=== PATIENT | male | born 1960 | race Caucasian/White ===

== ENCOUNTER → 2020-01-26 | Emergency (ER) | payer OTHER ==
[~2020-01-26] VITALS: Ht 170.2 cm; Wt 68.0 kg
== END | disposition home or self-care (01) ==
LOC: ER 17:12
DX: N39.0 Urinary tract infection, site not specified (principal); Z03.818 Encounter for observation for suspected exposure to other biological agents ruled out

== ENCOUNTER 2020-09-01 09:30 | Emergency (ER) | payer OTHER ==
[~2020-09-01] VITALS: Ht 170.2 cm; Wt 68.9 kg
[2020-09-01] MEDS ORDERED: LIPITOR20 MG PO (09:51)
[2020-09-01] MEDS ORDERED: TAMS0.4C PO (09:52)
[2020-09-01] MEDS ORDERED: ZESTRIL10 M1 PO (09:52)
[2020-09-01] MEDS ORDERED: HORIZANT300 MG PO (09:52)
[2020-09-01] MEDS ORDERED: LANTUS SOL100 UNIT/1 SQ (09:53)
[2020-09-01] MEDS ORDERED: HUMALOG100 UNIT/2 (09:54)
[2020-09-01] MEDS ORDERED: CELEBREX100 MG PO (15:06)
== END 2020-09-01 17:12 ==
LOC: ER 09:30
DX: M25.542 Pain in joints of left hand (principal); M25.541 Pain in joints of right hand; M25.572 Pain in left ankle and joints of left foot; M25.571 Pain in right ankle and joints of right foot

== ENCOUNTER 2021-01-25 09:36 | Emergency (ER) | payer OTHER ==
[~2021-01-25] VITALS: Ht 170.2 cm; Wt 71.7 kg
[~2021-01-25 09:36] MED LIST: CELEBREX100 MG PO; HORIZANT300 MG PO; HUMALOG100 UNIT/2; LANTUS SOL100 UNIT/1 SQ; LIPITOR20 MG PO; TAMS0.4C PO; ZESTRIL10 M1 PO
[2021-01-25] MEDS ORDERED: PEPCID AC20 MG PO (18:15)
[2021-01-25] MEDS ORDERED: PREVACID30 MG PO (18:15)
== END 2021-01-25 18:27 ==
LOC: ER 09:36
DX: K29.60 Other gastritis without bleeding (principal)

== ENCOUNTER 2021-04-20 08:01 | Outpatient (CLI) | payer OTHER ==
[~2021-04-20 08:01] MED LIST changes: +PEPCID AC20 MG PO; +PREVACID30 MG PO
== END 2021-04-20 08:05 | disposition home or self-care (01) ==
LOC: LAB 08:01
PROVIDERS: ATTEND Ophthalmology
DX: D68.8 Other specified coagulation defects (principal); H43.12 Vitreous hemorrhage, left eye; H35.81 Retinal edema

== ENCOUNTER 2021-08-02 06:32 | Emergency (ER) | payer OTHER ==
[~2021-08-02] VITALS: Ht 170.2 cm; Wt 70.8 kg
[2021-08-02] MEDS ORDERED: FLEXERIL (06:51)
== END 2021-08-02 10:17 | disposition home or self-care (01) ==
LOC: ER 06:32
DX: S80.01XA Contusion of right knee, initial encounter (principal); S30.0XXA Contusion of lower back and pelvis, initial encounter; W10.8XXA Fall (on) (from) other stairs and steps, initial encounter; Y93.9 Activity, unspecified; Y92.9 Unspecified place or not applicable; Y99.9 Unspecified external cause status; E11.9 Type 2 diabetes mellitus without complications; Z79.4 Long term (current) use of insulin; I10 Essential (primary) hypertension

== ENCOUNTER 2022-01-28 10:59 | Emergency (ER) | payer OTHER ==
[~2022-01-28] VITALS: Ht 175.3 cm; Wt 70.3 kg
[~2022-01-28 10:59] MED LIST changes: +FLEXERIL
== END 2022-01-28 14:33 | disposition home or self-care (01) ==
LOC: ER 10:59
DX: S31.649A Puncture wound with foreign body of abdominal wall, unspecified quadrant with penetration into peritoneal cavity, initial encounter (principal); W45.8XXA Other foreign body or object entering through skin, initial encounter; Y93.F9 Activity, other caregiving; Y92.9 Unspecified place or not applicable

== ENCOUNTER → 2022-01-30 | Emergency (ER) | payer OTHER ==
[~2022-01-30] VITALS: Ht 170.2 cm; Wt 90.7 kg
== END | disposition home or self-care (01) ==
LOC: ER 09:50
DX: S31.649A Puncture wound with foreign body of abdominal wall, unspecified quadrant with penetration into peritoneal cavity, initial encounter (principal); W45.8XXA Other foreign body or object entering through skin, initial encounter; Y93.F9 Activity, other caregiving; Y92.9 Unspecified place or not applicable

== ENCOUNTER 2023-09-01 14:25 | Emergency (ER) | payer OTHER ==
[~2023-09-01] VITALS: Ht 170.2 cm; Wt 66.7 kg
[2023-09-01] MEDS ORDERED: ONDANSETRON HCL 2 MG/ML VIAL IV ONE (16:45)
[2023-09-01] MEDS ORDERED: FAMOtidine 10 MG/ML (4ML VIAL) IV ONE (16:45)
[2023-09-01] MEDS ORDERED: 0.9 % SODIUM CHLORIDE 500 ML IV ONE (16:45)
[2023-09-01 17:23] LABS: HEMATOCRIT 39.2 % (39.0-48.0); HEMOGLOBIN 13.6 g/dL (13-16.00); MEAN CORPUSCULAR HEMOGLOBIN 32.9 pg (27.00-32.0); MEAN CORPUSCULAR HGB CONC 34.6 g/dl (32.0-36.0); PLATELET COUNT 212 K/uL (150-450); RED BLOOD COUNT 4.12 M/uL (4.00-6.00); RED CELL DISTRIBUTION WIDTH 12.9 % (11.5-14.5)
[2023-09-01 17:50] LABS: BILIRUBIN TOTAL 0.73 mg/dL (0.3-1.2); CALCIUM 9.6 mg/dL (8.5-10.1); CREATININE SERUM 0.86 mg/dL (0.70-1.30); GFR 90.4; GLOBULINA 3.3 G/DL (2.4-3.5); POTASSIUM 4.14 mEq/L (3.5-5.1); TOTAL PROTEIN 7.3 gm/dL (6.4-8.2)
== END 2023-09-01 19:33 | disposition home or self-care (01) ==
LOC: ER 14:26
PROVIDERS: General Practice
DX: K52.89 Other specified noninfective gastroenteritis and colitis (principal); E11.9 Type 2 diabetes mellitus without complications; Z79.4 Long term (current) use of insulin

== ENCOUNTER 2024-08-18 07:33 | Outpatient (CLI) | payer OTHER | END 2024-08-18 07:37 | disposition home or self-care (01) | LOC: SONOGRAMA 07:33 | PROVIDERS: ATTEND General Practice | DX: R07.9 Chest pain, unspecified (principal); R10.9 Unspecified abdominal pain ==

== ENCOUNTER → 2024-12-27 11:04 | Outpatient (CLI) | payer OTHER | END | disposition home or self-care (01) | LOC: NUCLEAR 11:04 | PROVIDERS: ATTEND General Practice | DX: M85.88 Other specified disorders of bone density and structure, other site (principal); M81.0 Age-related osteoporosis without current pathological fracture ==